=== PATIENT | male | born 1950 | race Hispanic/Latino ===

== ENCOUNTER → 2018-10-21 | Outpatient (CLI) | payer MEDICARE, OTHER ==
[~2018-10-21] MED LIST: ACET-66 PO; ALPHAGAN OU; ALPR0.255 PO; ASPI-1197 PO; BRIM5DRO OU; CARB25DR OU; CHOL200026 PO; CLON0.1T PO; CYCL30DR OU; DILT240C96 PO; EYE RELIEF OU; FINA5TAB41 PO; GARL1000 PO; HUMALOG SQ; HYDR-4153 PO; INSLAN SQ; KETOROLAC OU; METO50TA18 PO; MULT-1258 PO; NYSTATIN CREAM; PANT40TA25 PO; ROSU10TA27 PO; SODI126M NS; SODI650T PO; TACR1CAP10 PO; TAMS0.4C32 PO; TORS20TA4 PO; mycophenolate PO
[2018-10-21 15:28] LABS: CREATININE 1.5 mg/dL (0.5-1.5)
== END | disposition home or self-care (01) ==
LOC: LAB 14:16
PROVIDERS: ATTEND Neurological Surgery
DX: M48.062 Spinal stenosis, lumbar region with neurogenic claudication (principal)
CPT/HCPCS: 36415; 82565; 84520